=== PATIENT | male | born 2000 | race Caucasian/White ===

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

== ENCOUNTER 2019-06-10 15:48 | Emergency (ER) | payer OTHER ==
[~2019-06-10] VITALS: Ht 175.3 cm; Wt 72.6 kg
[2019-06-10 16:14] VITALS: BP 126/75
== END 2019-06-10 16:15 | disposition home or self-care (01) ==
LOC: ER 15:48
DX: R19.7 Diarrhea, unspecified (principal); F31.9 Bipolar disorder, unspecified; Z88.0 Allergy status to penicillin
CPT/HCPCS: 36415; 70030-TC; A4663

== ENCOUNTER 2024-03-31 01:48 | Emergency (ER) | payer OTHER ==
[~2024-03-31] VITALS: Ht 175.3 cm; Wt 74.8 kg
[2024-03-31] MEDS ORDERED: ONDANSETRON ODT 4 MG TAB.RAPDIS ONE (02:44)
[2024-03-31] MEDS ORDERED: LORAZEPAM 0.5 MG TABLET ONE (02:44)
[2024-03-31] MEDS ORDERED: HYDROMORPHONE 2 MG/1 ML DISP.SYRIN ONE (02:45)
[2024-03-31] MEDS: HYDROMORPHONE 1 MG/1 ML DISP.SYRIN IM ONE (02:52)
[2024-03-31] MEDS: LORAZEPAM 0.5 MG TABLET PO ONE (02:53)
[2024-03-31] MEDS: ONDANSETRON ODT 4 MG TAB.RAPDIS SL ONE (02:53)
[2024-03-31] MEDS ORDERED: CYCL10TA9 PO (03:50)
[2024-03-31] MEDS ORDERED: HYDR-3980 PO (03:50)
[2024-03-31 04:00] LABS: *BILIRUBIN,URIN NEGATIVE (NEGATIVE); *CLARITY,URINE CLEAR (CLEAR); *COLOR,URINE YELLOW (YELLOW); *KETONES,URINE NEGATIVE (NEGATIVE); *PROTEIN,URINE NEGATIVE (NEGATIVE); *UROBILINOGEN,URINE 0.2 E.U./dl (NORMAL); LEUKOCYTE ESTERASE ,URINE NEGATIVE (NEGATIVE); NITRITE, URINE NEGATIVE (NEGATIVE); UGLUCOSE NEGATIVE (NEGATIVE)
[2024-03-31 04:01] LABS: *BLOOD, URINE TRACE INTACT (NEGATIVE)
[2024-03-31 04:05] LABS: BACTERIA,URINE NONE SEEN /HPF (NONE SEEN); RBC,URINE 0-3 /HPF (0-3); SQUAMOUS EPITHELIAL CELL,UR FEW /HPF (NONE SEEN)
[2024-03-31 04:10] VITALS: BP 130/66; TEMP 98; O2SAT 99
== END 2024-03-31 04:11 | disposition home or self-care (01) ==
LOC: ER 02:00
DX: M54.6 Pain in thoracic spine (principal); F31.9 Bipolar disorder, unspecified; F17.210 Nicotine dependence, cigarettes, uncomplicated; Z60.2 Problems related to living alone; Z88.0 Allergy status to penicillin
CPT/HCPCS: 99283; 99406; 81001; J1170; A4606; A4663; Q0162